=== PATIENT | female | born 1985 | race Caucasian/White ===

== ENCOUNTER 2020-04-15 17:42 | Emergency (ER) | payer MEDICAID, SELFPAY ==
[2020-04-15] VITALS (13 sets, daily range): BP systolic 144–158; BP diastolic 89–100; PULSE 88–97; RESP 12–19; TEMP 36.7–36.8; O2SAT 95–100
[2020-04-15 18:18] LABS: Basophils Percent Auto 0.3 % (0.2-1.2); Eosinophils Absolute Auto 0.1 K/mm3 (0-0.3); Eosinophils Percent Auto 1.6 % (0-4.4); Hematocrit 38.8 % (37.0-47.0); Hemoglobin 13.4 g/dL (12.0-15.0); Immature Granulocyte Absolute 0.01 K/mm3 (0.00-0.031); Immature Granulocyte Percent A 0.1 % (0-0.5); Lymphocytes Absolute Auto 1.69 K/mm3 (0.9-3.2); Lymphocytes Percent Auto 22.6 % (18.3-44.2); Mean Corpuscular HGB Conc 34.5 g/dl (32-36); Mean Corpuscular Hemoglobin 28.3 pg (26-34); Mean Platelet Volume 9.3 fl (7.4-10.4); Monocytes Absolute Auto 0.5 K/mm3 (0.1-0.6); Monocytes Percent Auto 6.8 % (2.6-8.5); Neutrophils Absolute Auto 5.1 K/mm3 (1.3-6.7); Neutrophils Percent Auto 68.6 % (45.5-73.1); Platelet Count Result 293 k/mm3 (150-375); Red Blood Count 4.73 M/mm3 (4.2-5.4); Red Cell Distribution Width 13.2 % (11.5-14.5); White Blood Count 7.5 K/mm3 (4.5-10.0)
[2020-04-15 18:30] LABS: Alanine Aminotransferase 22 U/L (4-35); Albumin Level 4.1 g/dL (3.5-5.1); Alkaline Phosphatase 115 U/L (38-126); Anion Gap 8 mmol/L (8-16); Aspartate Amino Transferase 23 U/L (14-36); Bilirubin,Total 0.5 mg/dL (0.2-1.3); Blood Urea Nitrogen 6 mg/dL (7-17); Calcium 9.1 mg/dL (8.4-10.2); Carbon Dioxide 27 mmol/L (22-30); Chloride 103 mmol/L (98-107); Estimated CRCL calculation 175 ml/min; Estimated Glomerular Filt Rate > 60; Glucose 111 mg/dL (65-105); Lipase 40 U/L (23-300); Potassium 3.5 mmol/L (3.4-5.0); Sodium 138 mmol/L (137-145)
--- NOTE | 2020-04-15 18:43 | ED.ABDPAIN ---
HPI - Abdominal Pain General Chief Complaint: Abdominal Pain Stated Complaint: abd pain and vomiting Time Seen by Provider: 04/15/20 18:05 Source: patient Mode of arrival: ambulatory Limitations: no limitations History of Present Illness HPI narrative: 35-year-old female Presents for evaluation of upper abdominal pain occurring for the last approximately 3 days Associated with nausea and vomiting but not relieved by vomiting She does not think that food seems to make it appreciably worse She had a cholecystectomy in [facility] about 4 months ago without having any problems until now No fever, not having diarrhea, no urinary symptoms She does not smoke or drink alcohol She has a history of hypertension and anxiety MD elicited complaint: abdominal pain Onset (ago): day(s) Associated symptoms: nausea and vomiting Related Data Home Medications Medication Instructions Recorded Confirmed lisinopril 5 mg PO DAILY 04/15/20 sertraline [Zoloft] 25 mg PO DAILY 04/15/20 Allergies Allergy/AdvReac Type Severity Reaction Status Date / Time No Known Allergies Allergy Verified 04/15/20 18:01 Review of Systems Review of Systems: All systems reviewed & are unremarkable except as noted in HPI and below Constitutional: Constitutional: Denies chills and Denies fever(s) Cardiovascular: Cardiovascular: Denies chest pain Respiratory: Respiratory: Denies cough and Denies dyspnea Gastrointestinal: Gastrointestinal: Reports as per HPI and Reports no additional gastrointestinal complaints Genitourinary: Genitourinary: Reports no additional female genitourinary complaints and Reports as per HPI Exam Const: General: no acute distress and alert Nutritional Appearance: obese Orientation/consciousness: patient oriented x3 HENMT: Head: normal to inspection Eyes: Conjunctivae: conjunctivae normal EOM: EOMs intact bilaterally Resp: Effort & Inspection: normal respiratory effort Auscultation: clear to auscultation bilaterally Cardio: Rate: regular rate Rhythm: regular rhythm GI: GI Palp: Yes Soft to palpation, Yes Tenderness to palpation present (GI) (Mild, epigastric), No Guarding due to palpation present (GI) and No Rebound tenderness present Other: Habitus somewhat limits exam : General: Yes no CVA tenderness Skin: General skin exam: normal color Lesions: lesion noted (looks like a hickey on l side of neck) Neuro: General: patient oriented x3 and moves all extremities Speech: normal speech Extrem: General: no edema Course Course Emergency Course: Symptoms relieved by GI cocktail Lab evaluation pretty innocuous UA likely contaminated Vital Signs Vital signs: Vital Signs Pulse Rate 90 04/15/20 17:54 Respiratory Rate 16 04/15/20 17:54 Blood Pressure 146/100 H 04/15/20 17:54 Pulse Oximetry 95 04/15/20 17:54 Temperature 36.8 C 04/15/20 17:58 Pulse Rate 96 04/15/20 18:46 Respiratory Rate 19 04/15/20 19:02 Blood Pressure 144/89 H 04/15/20 18:46 Pulse Oximetry 99 04/15/20 19:02 MDM - Abdominal Pain Lab Data Result diagrams: 04/15/20 18:12 04/15/20 18:12 Labs: Lab Results 04/15/20 04/15/20 04/15/20 Range/Units 18:12 18:12 20:44 WBC 7.5 (4.5-10.0) K/mm3 RBC 4.73 (4.2-5.4) M/mm3 Hgb 13.4 (12.0-15.0) g/dL Hct 38.8 (37.0-47.0) % MCV 82.0 (80-100) fl MCH 28.3 (26-34) pg MCHC 34.5 (32-36) g/dl RDW 13.2 (11.5-14.5) % Plt Count 293 (150-375) k/mm3 MPV 9.3 (7.4-10.4) fl Immature Gran % (Auto) 0.1 (0-0.5) % Neut % (Auto) 68.6 (45.5-73.1) % Lymph % (Auto) 22.6 (18.3-44.2) % Reynolds % (Auto) 6.8 (2.6-8.5) % Eos % (Auto) 1.6 (0-4.4) % Baso % (Auto) 0.3 (0.2-1.2) % Lymph # (Auto) 1.69 (0.9-3.2) K/mm3 Reynolds # (Auto) 0.5 (0.1-0.6) K/mm3 Eos # (Auto) 0.1 (0-0.3) K/mm3 Baso # (Auto) 0.0 (0.0-0.1) K/mm3 Abs Immat Gran (auto) 0.01 (0.
[2020-04-15] MEDS: ONDANSETRON INJ 4 MG/2 ML VIAL IV PUSH (19:04)
[2020-04-15] MEDS: BELLADONNA ALK/PHENOB ELIX 10 ML, MAG HYDROX/ALUMINUM HYD/SIMETH 30 ML, LIDOCAINE HCL 2... PO (19:04)
[2020-04-15 20:55] LABS: Add Urine Microscopic? YES; Appearance Urine Clear (Clear); Bacteria Urine Trace /hpf; Bilirubin Urine Negative (Negative); Blood Urine Negative (Negative); Color Urine Yellow (Yellow); Glucose Urine UA Negative (Negative); Ketones Urine 2+ mg/dL (Negative); Leukocyte Esterase Ur Negative LEU/UL (Negative); Mucus Urine Heavy /lpf; Nitrate Urine Negative (Negative); Protein Urine 1+ mg/dL (Negative); Specific Grav Ur 1.025 (1.001-1.035); Squamous Epithelial Cell Urine Many /hpf (Few); WBC Urine 0-3 /hpf
== END 2020-04-15 21:20 | disposition home or self-care (01) ==
PROVIDERS: Emergency Provider Emergency Medicine
DX: K29.70 Gastritis, unspecified, without bleeding (principal); I10 Essential (primary) hypertension; F41.9 Anxiety disorder, unspecified
CPT/HCPCS: 36415; 51701; 80053; 81001; 81025; 83690; 85025; 96374; 99284; A9270; J2405

== ENCOUNTER 2020-04-16 04:57 | Observation (INO) | payer MEDICAID, SELFPAY ==
[2020-04-16] VITALS (15 sets, daily range): BP systolic 108–188; BP diastolic 89–111; PULSE 83–128; RESP 12–28; TEMP 36.2–36.7; O2SAT 88–100; BMI 52.0
--- NOTE | ~2020-04-16 | CT_ITS ---
EXAMINATION: CT brain wo con EXAM DATE: 04/16/2020 05:31 INDICATION: Altered mental status. Temporary change in awareness. TECHNIQUE: Spiral CT of the head was performed without contrast. Axial, coronal and sagittal images were reviewed. The dose-length product (DLP) for this examination was 605.33 mGy-cm. The exposure w as tailored according to patient size, and iterative reconstruction (ASIR) was used as additional dos e reduction technique. There is no prior study for comparison. FINDINGS: There is no acute intraparenchymal hemorrhage. No evidence of intraparenchymal brain mass lesion. No evidence of acute infarction. There is no mass effect or midline shift. The ventricles are normal in size. There are no extra-axial collections. There are no acute calvarial fractures. T he orbits are unremarkable. Soft tissue is unremarkable. Opacified right nasal cavity and maxillary sinus. IMPRESSION: 1. No acute intracranial findings. 2. Right maxillary sinus, nasal cavity opacity. Reviewed, dictated and finalized at location A. 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
--- NOTE | ~2020-04-16 | XR_ITS ---
EXAMINATION: XR chest 1V portable EXAM DATE: 04/16/2020 06:22 INDICATION: Transient alteration of awareness. TECHNIQUE: Portable AP frontal chest x-ray was obtained. There is no prior study for comparison. FINDINGS: Small amount of right basilar opacity probably atelectasis. The lungs are otherwise clear. There are no pleural effusions. Cardiac silhouette is prominent but magnified on this AP technique. There is no pneumothorax suspected. The bones and soft tissues are unremarkable. IMPRESSION: Small amount of right basilar opacity probably atelectasis. Reviewed, dictated and finalized at location A. THESIOLOGY RESIDENT
--- NOTE | 2020-04-16 04:51 | ECG_ITS ---
Measurements Intervals Steele Rate: 117 P: 51 CO: 158 QRS: 46 QRSD: 93 T: 56 QT: 270 QTc: 377 Interpretive Statements SINUS TACHYCARDIA BASELINE WANDER- I, II ABNORMAL ECG Electronically Signed On 04-16-2020 13:20:23 PULLING MACHINE OPERATOR by Vinay Kee D.O.
--- NOTE | 2020-04-16 05:01 | ED.OVERDOSE ---
HPI - Overdose General Chief Complaint: Overdose Stated Complaint: AMS Source: patient and EMS Mode of arrival: EMS Limitations: altered mental status and clinical condition History of Present Illness HPI Narrative: Patient is a 35-year-old female who presented for evaluation of altered mental status. Per EMS crew, they received a call from family that the patient was unresponsive. When they arrived to the patient's residence, she was cyanotic, mottled appearing, unresponsive, nearly bradycardic. Patient glucose in the 300s. IV was unable to be placed, thus IO was placed and the patient was given 4 mg of intraosseous Narcan and the patient had to have [id number] ventilation to help with her respiratory suppression. Patient improved on administration of Narcan. She did not require chest compressions. Per EMS crew, when she did awaken, she told them she used heroin. An oral airway was placed for oxygenation and patient was transported to our facility. At the time of assessment, patient is thrashing in the bed, oriented to person, not to place or time. She states she does not know what happened. When asked if she tried to end her life she states no. History otherwise limited. Of note, patient seen and evaluated at this [id number], diagnosed with gastritis had an uneventful course and was discharged home home. Related Data Home Medications Medication Instructions Recorded Confirmed lisinopril 5 mg PO DAILY 04/15/20 sertraline [Zoloft] 25 mg PO DAILY 04/15/20 chlorhexidine gluconate 04/16/20 Allergies Allergy/AdvReac Type Severity Reaction Status Date / Time No Known Allergies Allergy Verified 04/15/20 18:01 Review of Systems Review of Systems: ROS unobtainable: Yes unobtainable due to mental status [facility] Past Medical History Medical History (Updated 04/16/20 @ 06:07 by Kait Edwards MD) Gastritis Social History Social History (Updated 04/16/20 @ 05:15 by Kait Edwards MD) Alcohol intake: current Substance use: current Substance use type: opiates Living arrangements: with family Gender identity (if verbalized by the patient): Female Exam Narrative: Exam Narrative: GENERAL: Altered, awake, alert HEAD: Normocephalic, atraumatic. EYES: PERRLA and EOMI. ENT: Nares clear, no rhinorrhea or epistaxis. Mucous membranes moist. NECK: Supple. CHEST: No respiratory distress, breathing even and non labored HEART: Tachycardic rate, sinus rhythm ABDOMEN: Obese, Non distended, non tender, ecchymoses to the left lower quadrant EXTREMITIES: Normal range of motion. No edema. IO present right lower extremity. SKIN: Warm, dry, no rash. NEURO:No focal deficits. Alert and oriented x1 Course Vital Signs Vital signs: Vital Signs Temperature 36.6 C 04/16/20 04:55 Pulse Rate 128 H 04/16/20 04:55 Respiratory Rate 22 H 04/16/20 04:55 Blood Pressure 108/98 H 04/16/20 04:55 Pulse Oximetry 88 L 04/16/20 04:55 Temperature 36.6 C 04/16/20 04:55 Pulse Rate 105 H 04/16/20 05:45 Respiratory Rate 20 04/16/20 05:45 Blood Pressure 126/89 04/16/20 05:45 Pulse Oximetry 99 04/16/20 05:45 MDM - Overdose MDM Narrative Medical decision making narrative: Patient is a 35-year-old who presented to our facility after being found on unconscious, unresponsive by family. At the time of assessment to our facility, patient is altered, able to state her name, does admit to drug use, denies suicidal ideation. Initially patient hypoxic and was placed on 2 L via nasal cannula. Patient responded well to 4 mg doses of Narcan, she did require repeat doses in the ER due to worsening mentation and somnolence. The IO that the EMS crew placed in the field was removed when we had IV access. Patient was given 2 L of IV fluids in the ER. No sign of aspiration on chest x-ray. Urinalysis from earlier visit to the ER for gastritis type symptoms not indicative of UTI. No alcohol on board, other tox
[2020-04-16 05:12] LABS: Alveolar/Arterial O2 Gradient 72.1 mmHg; Base Excess ABG -9.5 mEq/l (+/-2.0); Carboxyhemoglobin 0.3 % THb (0-2.0); Fractional Inspired Oxygen 28 %; HCO3 ABG 16.2 mEq/l (22.0-26.0); Methemoglobin ABG 0.4 %THb (0-1.5); Oxygen Saturation ABG 95.6 % (95.0-100.0); Oxyhemoglobin 94.5 % THb (90.0-100.0); PCO2 ABG 34.7 mmHg (35.0-45.0); PO2 ABG 86.6 mmHg (80.0-100.0); PO2 FiO2 Ratio Arterial Blood 3.09 %; Reduced Hemoglobin 4.8 %THb (0-5.0); Total Hemoglobin 13.5 g/dL (12.0-18.0)
[2020-04-16 05:15] LABS: Device ROOM AIR; Modified Allen's Test Pass; Site Drawn RIGHT RADIAL; pH ABG 7.286 (7.350-7.450)
[2020-04-16 05:17] LABS: Basophils Percent Auto 0.4 % (0.2-1.2); Eosinophils Absolute Auto 0.1 K/mm3 (0-0.3); Eosinophils Percent Auto 1.8 % (0-4.4); Hematocrit 41.9 % (37.0-47.0); Hemoglobin 13.9 g/dL (12.0-15.0); Immature Granulocyte Absolute 0.04 K/mm3 (0.00-0.031); Immature Granulocyte Percent A 0.6 % (0-0.5); Lymphocytes Absolute Auto 1.91 K/mm3 (0.9-3.2); Lymphocytes Percent Auto 26.4 % (18.3-44.2); Mean Corpuscular HGB Conc 33.2 g/dl (32-36); Mean Corpuscular Hemoglobin 28.5 pg (26-34); Mean Corpuscular Volume 85.9 fl (80-100); Monocytes Absolute Auto 0.2 K/mm3 (0.1-0.6); Monocytes Percent Auto 2.2 % (2.6-8.5); Neutrophils Percent Auto 68.6 % (45.5-73.1); Platelet Count Result 278 k/mm3 (150-375); Red Blood Count 4.88 M/mm3 (4.2-5.4); Red Cell Distribution Width 13.2 % (11.5-14.5); White Blood Count 7.2 K/mm3 (4.5-10.0)
[2020-04-16] MEDS: NALOXONE HCL INJ 2 MG/2 ML AMP 4 MG IV PUSH (05:17)
[2020-04-16 05:20] LABS: Glucose Point of Care 172 (65-105)
[2020-04-16 05:27] LABS: INR 1.2; Prothrombin Time 15.6 Seconds (11.1-14.7)
[2020-04-16 05:28] LABS: Partial Thromboplastin Time 24.7 SECONDS (22.3-36.8)
[2020-04-16 05:34] LABS: Alanine Aminotransferase 33 U/L (4-35); Albumin Level 4.1 g/dL (3.5-5.1); Alkaline Phosphatase 136 U/L (38-126); Anion Gap 17 mmol/L (8-16); Aspartate Amino Transferase 82 U/L (14-36); Bilirubin,Total 0.6 mg/dL (0.2-1.3); Blood Urea Nitrogen 6 mg/dL (7-17); CRP 0.9 mg/dL (<1.0); Calcium 8.4 mg/dL (8.4-10.2); Carbon Dioxide 22 mmol/L (22-30); Chloride 101 mmol/L (98-107); Estimated Glomerular Filt Rate > 60; Glucose 213 mg/dL (65-105); Potassium 3.3 mmol/L (3.4-5.0); Sodium 140 mmol/L (137-145)
[2020-04-16] MEDS: SODIUM CHLORIDE 0.9% IV 1,000 ML 999 ML IV CONT (05:36)
[2020-04-16 05:43] LABS: Troponin I < 0.012 ng/mL (0.000-0.034)
[2020-04-16 06:13] LABS: Barbiturate Screen Urine Negative (Negative); Benzodiazepines Screen Urine Negative (Negative)
[2020-04-16] MEDS: MAGNESIUM SULF 2 GM/WATER 50ML 2 GM/50 ML BAG IVPB (06:16)
[2020-04-16 06:21] LABS: Acetaminophen < 10 ug/mL (10-30); Ethanol < 10 mg/dL (<10); Salicylate 4.9 mg/dL (2-20)
[2020-04-16 06:26] LABS: Lactic Acid Reflex 3.6 mmol/L (0.7-2.1)
[2020-04-16 06:27] LABS: Beta-Hydroxybutyrate/Acetoacetate 0.13 mmol/L (0.02-0.27)
--- NOTE | 2020-04-16 06:38 | PC.NURSE ---
pt has multiple scabs and bruises on body.
[2020-04-16 07:05] LABS: Magnesium 2.2 mg/dL (1.6-2.3); Phosphorus 7.1 mg/dL (2.5-4.5)
[2020-04-16 07:25] LABS: Cannabinoid Screen Urine Positive (Negative); Cocaine Screen Urine Negative (Negative); Methadone Screen Urine Negative (Negative); Opiate Screen Urine Negative (Negative); Phencyclidine Screen Urine Negative (Negative)
[2020-04-16 07:26] LABS: Amphetamine Screen Urine Positive (Negative)
[2020-04-16] MEDS: ONDANSETRON INJ 4 MG/2 ML VIAL IV PUSH (07:47)
[2020-04-16] MEDS: LACTATED RINGERS 1,000 ML 999 ML IV CONT ×2 (07:51→11:58)
[2020-04-16 09:08] LABS: Reflex Lactic Acid Yes or No Add Lactic
--- NOTE | 2020-04-16 10:58 | PM.IMHP ---
H&P: HPI History of Present Illness Date/Time: 04/16/20 10:58 Chief Complaint: Multiple drug overdose Narrative: Patient is a 35-year-old female who presented for evaluation of altered mental status. Per EMS crew, they received a call from family that the patient was unresponsive. When they arrived to the patient's residence, she was cyanotic, mottled appearing, unresponsive, nearly bradycardic. Patient glucose in the 300s. IV was unable to be placed, thus IO was placed and the patient was given 4 mg of intraosseous Narcan and the patient had to have csi-vpofm-alle ventilation to help with her respiratory suppression. Patient improved on administration of Narcan. She did not require chest compressions. Per EMS crew, when she did awaken, she told them she used heroin. An oral airway was placed for oxygenation and patient was transported to our facility. At the time of assessment, patient is thrashing in the bed, oriented to person, not to place or time. She states she does not know what happened. When asked if she tried to end her life she states no. History otherwise limited. At present time patient in the ICU. Patient is still drowsy but arousable and moves all extremity. Patient denies any shortness of breath fever chills. Patient denies any abdominal pain nausea vomiting or diarrhea. Patient denies any fever. We will reassess the patient dated on and monitor patient continuously in the ICU for respiratory depression and other signs of withdrawal. Review of Systems Review of Systems: Narrative: All review of systems is negative except as that are noted in the history and physical examination ROS unobtainable: Yes unobtainable due to mental status PMF[facility] Past Medical History Medical History (Updated 04/16/20 @ 06:07 by Kait Edwards MD) Gastritis Social History Social History (Updated 04/16/20 @ 05:15 by Kait Edwards MD) Alcohol intake: current Substance use: current Substance use type: opiates Living arrangements: with family Gender identity (if verbalized by the patient): Female Meds Home Medications and Allergies Home Medications Medication Instructions Recorded Confirmed Type lisinopril 5 mg PO DAILY 04/15/20 History pantoprazole [Protonix] 40 mg PO HS 28 Days #28 tablet 04/15/20 Rx sertraline [Zoloft] 25 mg PO DAILY 04/15/20 History chlorhexidine gluconate 04/16/20 History Allergies Allergy/AdvReac Type Severity Reaction Status Date / Time No Known Allergies Allergy Verified 04/15/20 18:01 Vital Signs Vital Signs - 24 hr 04/16/20 04:55 04/16/20 05:45 04/16/20 07:00 Temperature 36.6 C Pulse Rate 128 H 105 H 113 H Respiratory Rate 22 H 20 12 Blood Pressure 108/98 H 126/89 140/100 H Pulse Oximetry 88 L 99 96 04/16/20 07:30 04/16/20 08:22 04/16/20 09:51 Temperature Pulse Rate 116 H 99 Respiratory Rate 14 12 Blood Pressure 155/91 H 161/95 H Pulse Oximetry 96 97 98 Exam Narrative: Exam Narrative: GENERAL: Altered, awake, alert HEAD: Normocephalic, atraumatic. EYES: PERRLA and EOMI. ENT: Nares clear, no rhinorrhea or epistaxis. Mucous membranes moist. NECK: Supple. CHEST: No respiratory distress, breathing even and non labored HEART: Tachycardic rate, sinus rhythm ABDOMEN: Obese, Non distended, non tender, ecchymoses to the left lower quadrant EXTREMITIES: Normal range of motion. No edema. IO present right lower extremity. SKIN: Warm, dry, no rash. NEURO:No focal deficits. Alert and oriented x1 Const: General: cooperative and no acute distress Orientation/consciousness: oriented to person, oriented to place, oriented to time and patient oriented x3 HENMT: Head: normal to inspection Ears: hearing grossly normal bilaterally and external ears normal General nose exam: Normal external nose present Face and sinus: normal facial exam Mouth: Yes Normal oral and palatal mucosa present Eyes: General: appearance normal, both eyes and all related
[2020-04-16 11:30] LABS: Lactic Acid Reflex 0.9 mmol/L (0.7-2.1)
--- NOTE | 2020-04-16 11:47 | ADMGEN ---
This patient, Denita Rangel, was admitted to Intensive Care Unit-7. Patient/family oriented to hospital policies and general routines including ID bracelet, bed and alarms, visiting hours, pain management, procedures, bathroom and other care routines, personal items, smoking policy, room service/diet, and visiting hours. Information on how to activate the Rapid Response Team has been discussed. Patient/Family are encouraged to report perceived risks to care and to ask questions if they do not understand what they are told or what they should do.
[2020-04-16] MEDS: LACTATED RINGERS 1,000 ML 100 ML IV CONT ×2 (11:58→19:54)
--- NOTE | 2020-04-16 12:01 | WPDCNINT ---
Assessment and Plan Assessment and plan (1) Poisoning by opiate or related narcotic: Status: Acute Assessment and Plan: Patient took unknown tablet and gas station and became unresponsive. Positive for amphetamine and cannabinoids patient does admit to taking opioids Mental status improved with Narcan IV push I will continue Narcan infusion at this and slowly wean it down Continue IV fluids (2) Encephalopathy: Code(s): G93.40 - Encephalopathy, unspecified Status: Acute Assessment and Plan: Secondary to opioid overdose. Patient now on Narcan infusion and alert oriented x3 Monitor Head CT was negative (3) Respiratory failure: Code(s): J96.90 - Respiratory failure, unspecified, unspecified whether with hypoxia or hypercapnia Status: Acute Assessment and Plan: Patiently she presented with respiratory failure secondary to opioid overdose but since then has improved with Narcan infusion End-tidal CO2 monitor placed in the ICU (4) Depression: Code(s): F32.9 - Major depressive disorder, single episode, unspecified Status: Acute Assessment and Plan: Continue Zoloft (5) HTN (hypertension): Code(s): I10 - Essential (primary) hypertension Status: Acute Assessment and Plan: Resume lisinopril (6) Lactic acidosis: Code(s): E87.2 - Acidosis Status: Acute Assessment and Plan: Likely from hypoxia, hypoperfusion and hypovolemia Improved and lactic acid level has normalized now continue IV fluids Continue IV fluid Does not appear to have any signs of infection as CT chest x-ray UA were negative and WBC count was normal Additional Plan DVT prophylaxis -SCDs Stress ulcer prophylaxis -resume PPI Nutrition -clear liquid diet Code Status - Full Code 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 When they arrived to the patient's residence, she was cyanotic, mottled appearing, unresponsive, nearly bradycardic. Patient glucose in the 300s. IV was unable to be placed, thus IO was placed and the patient was given 4 mg of intraosseous Narcan and the patient had to have [id number]-[id number] ventilation to help with her respiratory suppression. Patient improved on administration of Narcan. She did not require chest compressions. Per EMS crew, when she did awaken, she told them she used heroin. An oral airway was placed for oxygenation and patient was transported to our facility. In the ED patient was given additional Narcan for IV access was obtained which led to improvement in mental status. She was started on IV Narcan infusion, lab work was done, 1 L IV fluid bolus was given and patient was admitted to ICU for further evaluation management This morning when I saw the patient she was alert oriented x3. She told me she took a capsule of drugs from a friend on a gas station and is not sure what was in it. She usually snorts meth and takes prescription pills which she obtains on the street including Percocet for her addiction. She states that she continues to have abdominal pain which is constant and has been going on for years. She did had a gallbladder removed in November of this year but states the pain never went away. She told me that she took the pill to treat her pain and was not planning to attempt suicide. She denies any suicidal homicidal ideation at this time although she does admit of having them in the past. She is on Zoloft for depression and lisinopril for blood pressure but patient was not very forthcoming with compliance. Social history apart from drug abuse mentioned above he denies any smoking or alcohol use Past medical history hypertension and depression Past surgical history cholecystectomy Review of Systems R
[2020-04-16] MEDS: POTASSIUM CHLORIDE 20 MEQ TABLET 40 MEQ PO (12:53)
[2020-04-16] MEDS: lisinopriL 10 MG TABLET PO ×2 (12:54→19:55)
[2020-04-16 14:01] LABS: Glucose Point of Care 97 (65-105)
[2020-04-16] MEDS: HEPARIN SODIUM 5,000 UNITS/ML VIAL 5000 UNITS SUB-Q (19:54)
[2020-04-17] VITALS (10 sets, daily range): BP systolic 130–180; BP diastolic 71–131; PULSE 83–102; RESP 12–24; TEMP 36.3–36.9; O2SAT 96–100
[2020-04-17 05:31] LABS: Anion Gap 9 mmol/L (8-16); Blood Urea Nitrogen 5 mg/dL (7-17); Calcium 8.3 mg/dL (8.4-10.2); Carbon Dioxide 25 mmol/L (22-30); Chloride 104 mmol/L (98-107); Estimated CRCL calculation 211 ml/min; Estimated Glomerular Filt Rate > 60; Glucose 85 mg/dL (65-105); Potassium 3.2 mmol/L (3.4-5.0); Sodium 138 mmol/L (137-145)
[2020-04-17] MEDS: ACETAMINOPHEN 325 MG TABLET 650 MG PO (08:40)
--- NOTE | 2020-04-17 09:32 | PM.IMPN ---
Progress Note: A&P Assessment and Plan (1) Poisoning by opiate or related narcotic: Status: Acute Assessment and Plan: 1. Multiple drug overdoses 2. Respiratory depression 3. History of hypertension 4. History of depression 5. History of gastroesophageal reflux disease 6. Hypokalemia Plan is to monitor signs of withdrawal. Give IV fluids. Replace potassium and monitor continue blood pressure and reflux medications. Restart depression mindset medicine. Provided counseling and referred to outpatient drug rehab upon discharge. Patient will stay for more than 2 days in the hospital. Patient is full code. Smoking Counselling will be provided. Patient is given therapeutic subcutaneous heparin for DVT prophylaxis. Additional Plan Patient is doing much better blood pressure is slightly high will increase blood pressure medicine. Potassium will replace. Will transfer to regular floor. Possible discharge in the morning. Subjective Date/time seen: 04/17/20 09:32 Interval history: Patient was seen during the morning rounds today. Patient is feeling much better. No shortness of breath or chest pain. Mood stable. Review of Systems Review of Systems: Narrative: All review of systems are negative except as mentioned in the history and physical examination. Exam Narrative: Exam Narrative: GENERAL: Altered, awake, alert HEAD: Normocephalic, atraumatic. EYES: PERRLA and EOMI. ENT: Nares clear, no rhinorrhea or epistaxis. Mucous membranes moist. NECK: Supple. CHEST: No respiratory distress, breathing even and non labored HEART: Tachycardic rate, sinus rhythm ABDOMEN: Obese, Non distended, non tender, ecchymoses to the left lower quadrant EXTREMITIES: Normal range of motion. No edema. IO present right lower extremity. SKIN: Warm, dry, no rash. NEURO:No focal deficits. Alert and oriented x1 Const: General: cooperative and no acute distress Orientation/consciousness: oriented to person, oriented to place, oriented to time and patient oriented x3 HENMT: Head: normal to inspection Ears: hearing grossly normal bilaterally and external ears normal General nose exam: Normal external nose present Face and sinus: normal facial exam Mouth: Yes Normal oral and palatal mucosa present Eyes: General: appearance normal, both eyes and all related structures Neck: Neck: normal visual inspection and full ROM Chest: Chest palpation & inspection: normal inspection of the chest and normal palpation of entire chest wall Resp: Effort & Inspection: normal respiratory effort Auscultation: clear to auscultation bilaterally Cardio: Jugular venous distension: no JVD Palpation: normal PMI Rate: regular rate Heart sounds: S1 normal heart sound present and S2 normal heart sound present GI: Inspection: normal to inspection Neuro: General: oriented to person, oriented to place, oriented to time and patient oriented x3 Cranial nerves: Yes CN's II-XII intact bilaterally Speech: normal speech Gait exam (Neuro): Normal gait present Motor exam (neuro): 5/5 motor strength present throughout Sensory Exam: normal sensation Psych: Appearance: grossly normal Objective Data Vital Signs Vital Signs: Vital Signs - 24 hr 04/16/20 09:51 04/16/20 10:00 04/16/20 12:00 Temperature 36.2 C L Pulse Rate 123 H 94 Respiratory Rate 21 H 25 H Blood Pressure 171/111 H 168/109 H Pulse Oximetry 98 100 99 04/16/20 14:00 04/16/20 16:00 04/16/20 18:00 Temperature 36.2 C L Pulse Rate 102 H 106 H 106 H Respiratory Rate 28 H 26 H 18 Blood Pressure 163/98 H 159/99 H 160/100 H Pulse Oximetry 99 94 99 04/16/20 20:00 04/16/20 22:00 04/17/20 00:00 Temperature 36.7 C 36.8 C Pulse Rate 89 93 94 Respiratory Rate 24 H 18 24 H Blood Pressure 180/99 H 153/90 H 180/99 H Pulse Oximetry 98 99 98 04/17/20 02:00 04/17/20 04:00 04/17/20 06:00 Temperature 36.8 C Pulse Rate 90 83 96 Respiratory Rate 22 H 24 H 18 Blood Pressure 139/99 H 130/89 155/81
[2020-04-17] MEDS: ONDANSETRON INJ 4 MG/2 ML VIAL IV PUSH (10:03)
[2020-04-17] MEDS: HEPARIN SODIUM 5,000 UNITS/ML VIAL 5000 UNITS SUB-Q ×2 (10:53→20:41)
[2020-04-17] MEDS: PANTOPRAZOLE 40 MG TABLET PO ×2 (10:54→11:59)
[2020-04-17] MEDS: lisinopriL 20 MG TABLET PO ×2 (11:58→20:41)
--- NOTE | 2020-04-17 12:57 | WPDINTPN ---
Progress Note: A&P Assessment and Plan (1) Poisoning by opiate or related narcotic: Status: Acute Assessment and Plan: Patient took unknown tablet and gas station and became unresponsive. Positive for amphetamine and cannabinoids patient does admit to taking opioids Mental status improved with Narcan IV push Narcan infusion has been discontinued, patient is awake, alert, oriented x3 Continue IV fluids (2) Encephalopathy: Code(s): G93.40 - Encephalopathy, unspecified Status: Acute Assessment and Plan: RESOLVED Secondary to opioid overdose. Patient now on Narcan infusion and alert oriented x3 Monitor Head CT was negative (3) Respiratory failure: Code(s): J96.90 - Respiratory failure, unspecified, unspecified whether with hypoxia or hypercapnia Status: Acute Assessment and Plan: Patiently she presented with respiratory failure secondary to opioid overdose but since then has improved with Narcan infusion End-tidal CO2 monitor placed in the ICU -currently on room air with good O2 sats (4) Depression: Code(s): F32.9 - Major depressive disorder, single episode, unspecified Status: Acute Assessment and Plan: Continue Zoloft (5) HTN (hypertension): Code(s): I10 - Essential (primary) hypertension Status: Acute Assessment and Plan: Resume lisinopril (6) Lactic acidosis: Code(s): E87.2 - Acidosis Status: Acute Assessment and Plan: Likely from hypoxia, hypoperfusion and hypovolemia Improved and lactic acid level has normalized now continue IV fluids Continue IV fluid Does not appear to have any signs of infection as CT chest x-ray UA were negative and WBC count was normal Additional Plan DVT prophylaxis -SCDs Stress ulcer prophylaxis -resume PPI Nutrition -advanced diet as tolerated Code Status - Full Code Subjective Date/time seen: 04/17/20 12:57 Interval history: Reason for consult: Unknown drug overdose/use, altered mental status 04/17: Patient is awake, alert, oriented x3. She really does not know what was given to her at the gas station. States she is glad to be alive. Her urine tox screen was positive for amphetamine and cannabinoids and she does admit to taking opioids. Patient is hemodynamically stable. Patient did have an episode of emesis this morning and was given Zofran. Patient denies any chest pain, abdominal pain, nausea at this time Review of Systems Review of Systems: All systems reviewed & are unremarkable except as noted in HPI and below Exam Narrative: Exam Narrative: General: Pt is alert awake and in NAD Lungs/Chest: Trachea central Clear BS B/L, No crackles or wheezing. Cardiac: RRR. Normal S1 S2. No murmurs Circulation: Pedal pulses are intact and symmetrical. Abdomen: Obese Normal bowel sounds. Soft. ND. Mild diffuse tenderness throughout abdomen which is inconsistent when I examine her again, her facial expressions appeared out of proportion Extremities: No clubbing, cyanosis or edema. Warm no signs of IV drug use in antecubital area : Sorto in place Neurologic: Follows commands. Moves all 4 extremities PERRL Skin: Multiple areas of scab wounds from skin picking although her body Objective Data Vital Signs Vital Signs: Vital Signs - 24 hr 04/16/20 14:00 04/16/20 16:00 04/16/20 18:00 Temperature 97.1 F L Pulse Rate 102 H 106 H 106 H Respiratory Rate 28 H 26 H 18 Blood Pressure 163/98 H 159/99 H 160/100 H Pulse Oximetry 99 94 99 04/16/20 20:00 04/16/20 22:00 04/17/20 00:00 Temperature 98.0 F 98.3 F Pulse Rate 89 93 94 Respiratory Rate 24 H 18 24 H Blood Pressure 180/99 H 153/90 H 180/99 H Pulse Oximetry 98 99 98 04/17/20 02:00 04/17/20 04:00 04/17/20 06:00 Temperature 98.3 F Pulse Rate 90 83 96 Respiratory Rate 22 H 24 H 18 Blood Pressure 139/99 H 130/89 155/81 H Pulse Oximetry 98 98 98 04/17/20 08:00 04/17/20 10:00 04/17/20 10:50 Temperature 9
[2020-04-17 15:26] LABS: Glucose Point of Care 86 (65-105)
--- NOTE | 2020-04-17 16:08 | PC.NURSE ---
PATIENT TRANSFERED TO [facility] PER WHEELCHAIR. REPORT GIVEN TO SUGAR CUMMINS. ALL QUESTIONS ANSWERED. BELONGINGS SENT.
[2020-04-17] MEDS: SERTRALINE HCL 25 MG TABLET PO (16:54)
[2020-04-17 17:05] LABS: Glucose Point of Care 91 (65-105)
[2020-04-17 22:44] LABS: Glucose Point of Care 91 (65-105)
[2020-04-18 05:17] VITALS: BP 153/89; PULSE 95; RESP 16; TEMP 36.6; O2SAT 98
[2020-04-18 06:20] LABS: Anion Gap 10 mmol/L (8-16); Blood Urea Nitrogen 7 mg/dL (7-17); Calcium 8.5 mg/dL (8.4-10.2); Carbon Dioxide 26 mmol/L (22-30); Chloride 103 mmol/L (98-107); Estimated CRCL calculation 188 ml/min; Estimated Glomerular Filt Rate > 60; Glucose 88 mg/dL (65-105); Potassium 3.5 mmol/L (3.4-5.0); Sodium 139 mmol/L (137-145)
[2020-04-18 08:00] VITALS: BP 155/99; PULSE 103; RESP 18; TEMP 36.2; O2SAT 97
--- NOTE | 2020-04-18 09:30 | PM.DS ---
DS: Admitting Diagnosis Admitting Diagnosis Admitting Diagnosis: 1 Multiple drug overdose 2. History of Depression 3. History of gastroesophageal reflux disease 4. History of hypertension DS: Discharge Diagnosis Discharge Diagnosis (1) Poisoning by opiate or related narcotic: Status: Acute Assessment and Plan: 1. Multiple drug overdoses 2. Respiratory depression 3. History of hypertension 4. History of depression 5. History of gastroesophageal reflux disease 6. Hypokalemia Plan is to monitor signs of withdrawal. Give IV fluids. Replace potassium and monitor continue blood pressure and reflux medications. Restart depression mindset medicine. Provided counseling and referred to outpatient drug rehab upon discharge. Patient will stay for more than 2 days in the hospital. Patient is full code. Smoking Counselling will be provided. Patient is given therapeutic subcutaneous heparin for DVT prophylaxis. DS: Summary Hospital Course Hospital Course: Chief Complaint: Multiple drug overdose Narrative: Patient is a 35-year-old female who presented for evaluation of altered mental status. Per EMS crew, they received a call from family that the patient was unresponsive. When they arrived to the patient's residence, she was cyanotic, mottled appearing, unresponsive, nearly bradycardic. Patient glucose in the 300s. IV was unable to be placed, thus IO was placed and the patient was given 4 mg of intraosseous Narcan and the patient had to have [id number] ventilation to help with her respiratory suppression. Patient improved on administration of Narcan. She did not require chest compressions. Per EMS crew, when she did awaken, she told them she used heroin. An oral airway was placed for oxygenation and patient was transported to our facility. At the time of assessment, patient is thrashing in the bed, oriented to person, not to place or time. She states she does not know what happened. When asked if she tried to end her life she states no. History otherwise limited. At present time patient in the ICU. Patient is still drowsy but arousable and moves all extremity. Patient denies any shortness of breath fever chills. Patient denies any abdominal pain nausea vomiting or diarrhea. Patient denies any fever. We will reassess the patient dated on and monitor patient continuously in the ICU for respiratory depression and other signs of withdrawal. Patient was admitted in the intensive care unit IV fluid was given, patient blood pressure was controlled. Patient little symptoms are monitored. Patient was referred to outpatient rehab. Patient was given clonidine to decrease the patrol and control of blood pressure. Today patient is feeling better her mood is controlled no suicidal homicidal ideation. Patient discharged home stable condition low-sodium diet activity as tolerated follow-up primary care physician outpatient next week patient also referred to outpatient drug rehab. Time spent discussing smoking cessation with patient: 3 to 10 minutes Status at Discharge Cognitive/behavioral status at discharge: Stable Functional status at discharge: independent ambulation Overall status at discharge: patient is back to baseline Time Spent with Patient Time attestation: Total time spent providing and/or coordinating discharge services: Time spent: Less than 30 minutes Specific discharge activities: As tolerated Exam Narrative: Exam Narrative: GENERAL: Altered, awake, alert HEAD: Normocephalic, atraumatic. EYES: PERRLA and EOMI. ENT: Nares clear, no rhinorrhea or epistaxis. Mucous membranes moist. NECK: Supple. CHEST: No respiratory distress, breathing even and non labored HEART: Tachycardic rate, sinus rhythm ABDOMEN: Obese, Non distended, non tender, ecchymoses to the left lower quadrant EXTREMITIES: Normal range of motion. No edema. IO present right lower extremity. SKIN: Warm, dry, no rash. NEURO:No focal deficits. Alert and oriented x
[2020-04-18] MEDS: SERTRALINE HCL 25 MG TABLET PO (09:56)
[2020-04-18] MEDS: cloNIDine HCL 0.1 MG TABLET PO (09:56)
[2020-04-18] MEDS: lisinopriL 20 MG TABLET PO (09:56)
== END 2020-04-18 10:19 | disposition home or self-care (01) ==
LOC: ANHED 06:07 → ANHICU 13:29 → ANH3MED 04-18 09:29 → ANHICU 04-21 15:25
PROVIDERS: Internal Medicine; Admitting Provider Family Medicine; Emergency Provider Emergency Medicine; Visit Provider Internal Medicine
DX: T40.601A Poisoning by unspecified narcotics, accidental (unintentional), initial encounter (principal); G93.40 Encephalopathy, unspecified; J96.90 Respiratory failure, unspecified, unspecified whether with hypoxia or hypercapnia; E87.2 Acidosis; I10 Essential (primary) hypertension; K21.9 Gastro-esophageal reflux disease without esophagitis; E87.6 Hypokalemia; F32.9 Major depressive disorder, single episode, unspecified; K29.70 Gastritis, unspecified, without bleeding
CPT/HCPCS: 36415; 36600; 51701; 70450; 71045; 80048; 80053; 80307; 81025; 82010; 82375; 82805; 82948; 83050; 83605; 83735; 84100; 84443; 84484; 85025; 85610; 85730; 86140; 93005; 96361; 96365; 96366; 96372; 96374; 96375; 99285; A9270; G0378; J0131; J1644; J2310; J2405; J3475; J7030; J7050; J7120

== ENCOUNTER 2022-12-28 15:10 | Emergency (ER) | payer MEDICAID, SELFPAY ==
[2022-12-28 16:09] VITALS: PULSE 82; RESP 16; TEMP 36.8; O2SAT 97
--- NOTE | 2022-12-28 19:02 | ED.SKABFB ---
HPI - Skin/Abscess/Foreign Bdy General Chief complaint: Skin/Abscess/Foreign Body Stated complaint: boils Time Seen by Provider: 12/28/22 17:13 Source: patient Mode of arrival: ambulatory Limitations: no limitations History of Present Illness HPI narrative: This is a 37 year old female that presents to the ER for abscesses present on her scalp. Reports swelling and pain to the areas. Reports mild oozing. Denies fevers. Related Data Allergies Allergy/AdvReac Type Severity Reaction Status Date / Time No Known Allergies Allergy Verified 04/15/20 18:01 Review of Systems Review of Systems: CONSTITUTIONAL: Denies fever SKIN: Reports redness and swelling All systems reviewed & are unremarkable except as noted in HPI and below PMFSH Past Medical History Medical History (Updated 12/28/22 @ 19:03 by Radha Donovan PA-C) Depression Gastritis HTN (hypertension) Social History Social History Smoking status: Unknown if ever smoked Alcohol intake: current Substance use: current Substance use type: opiates Living arrangements: with family Gender identity (if verbalized by the patient): Female Spiritual care concerns: No Exam Narrative: GENERAL: Well-appearing, well-nourished, and in no acute distress. HEAD: Normocephalic, atraumatic. Two small abscesses present on the scalp, spontaneously draining. EYES: EOMI. CHEST: No respiratory distress. HEART: Regular rate EXTREMITIES: Normal range of motion. No edema. SKIN: Warm, dry, no rash. NEURO: No focal deficits. Alert and oriented x3. PSYCH: Normal mood and affect Course Course Emergency Course: Patient educated on further wound care Vital Signs Vital signs: Vital Signs Temperature 98.3 F 12/28/22 16:09 Pulse Rate 82 12/28/22 16:09 Respiratory Rate 16 12/28/22 16:09 Pulse Oximetry 97 12/28/22 16:09 Oxygen Delivery Room Air 12/28/22 16:09 Temperature 98.3 F 12/28/22 16:09 Pulse Rate 77 12/28/22 19:03 Respiratory Rate 16 12/28/22 19:03 Blood Pressure 130/98 H 12/28/22 19:03 Pulse Oximetry 100 12/28/22 19:03 Oxygen Delivery Room Air 12/28/22 16:09 Procedures Abscess I/D scalp: Date of Incision: 12/28/22 Packing used?: none I&D Results: Pus Abcess I&D Additional Comments: Two abscesses on scalp were spontaneously draining. Expressed additional purulence from them. Covered with antibiotic ointment MDM - Skin/Abscess/Foreign Bdy MDM Narrative Medical decision making narrative: Patient presents to the ER for abscesses present on the scalp. She is afebrile and nontoxic appearing. Her vitals are stable. Abscesses were spontaneously draining. I did express purulence from both of them and sent for culture. She will be started on oral antibiotics. Instructed on further wound care. Was instructed to follow up with Plastic surgery. She was given warnings to return to the ER Differential Diagnosis Differential diagnosis: Likely abscess of skin or subcutaneous tissue, cellulitis, eczema, impetigo and contact dermatitis Critical Care Time Critical Care Time Critical Care Time: No Discharge Plan Discharge Clinical Impression: Abscess Patient Disposition: Home, Self-Care Condition: Stable Instructions: Antibiotic Form, Abscess (ED) Additional Instructions: Return if symptoms worsen or concerns: any increase in redness, swelling, pain or fever over 101 Take antibiotics as directed. Clean wound with mild soapy water. Apply antibiotic ointment daily. Warm compresses 3 times a day for 30 minutes each Follow up with plastic surgery Prescriptions: New doxycycline hyclate 100 mg tablet 100 mg PO BID 14 Days Qty: 28 0RF No Action clonidine HCl 0.1 mg Tablet 0.1 mg PO Q12HR 30 Days Qty: 60 0RF lisinopril 20 mg Tablet 20 mg PO Q12HR 30 Days Qty: 60 0RF sertraline [Zoloft] 25 mg Tablet 2
[2022-12-28 19:03] VITALS: BP 130/98; PULSE 77; RESP 16; O2SAT 100
[2022-12-28] MEDS: KETOROLAC 30 MG/ML VIAL (*BKC) IM (19:15)
== END 2022-12-28 19:19 | disposition home or self-care (01) ==
PROVIDERS: Emergency Provider Physician Assistant
DX: L02.811 Cutaneous abscess of head [any part, except face] (principal); I10 Essential (primary) hypertension; F32.A Depression, unspecified
CPT/HCPCS: 87070; 87147; 87186; 87205; 96372; 99283; J1885

== ENCOUNTER 2022-12-31 12:17 | Emergency (ER) | payer MEDICAID, SELFPAY ==
[2022-12-31 12:24] VITALS: BP 115/69; PULSE 67; RESP 18; TEMP 36.6; O2SAT 97
[2022-12-31 13:55] VITALS: BP 110/73; PULSE 65; RESP 19; O2SAT 100
--- NOTE | 2022-12-31 14:04 | ED.SKABFB ---
HPI - Skin/Abscess/Foreign Bdy General Chief complaint: Skin/Abscess/Foreign Body Stated complaint: abnormal lab Time Seen by Provider: 12/31/22 13:05 Source: patient Mode of arrival: ambulatory Limitations: no limitations History of Present Illness HPI narrative: This is a 37 year old female who presents for evaluation of left ear abscess. She was evaluated in ER 3 days ago and prescribed antibiotics. She states she has not started her antibiotics yet because it was too expensive. She was called today due to abnormal lab test. She is not sure what lab test and she was told to come to ER. She denies any new complaints. She denies fever, chills, nausea, vomiting. On review of chart, it appears wound culture was positive for MRSA so this is likely why she was called. It is sensitive to bactrim Related Data Allergies Allergy/AdvReac Type Severity Reaction Status Date / Time No Known Allergies Allergy Verified 04/15/20 18:01 Review of Systems Review of Systems: All systems reviewed & are unremarkable except as noted in HPI and below PMFSH Past Medical History Medical History Depression Gastritis HTN (hypertension) Social History Social History Smoking status: Unknown if ever smoked Alcohol intake: current Substance use: current Substance use type: opiates Living arrangements: with family Gender identity (if verbalized by the patient): Female Spiritual care concerns: No Exam Const: General: no acute distress and alert Orientation/consciousness: patient oriented x3 Limitations: no limitations HENMT: Head: normal to inspection Face and sinus: normal facial exam Mouth: Yes Normal oral and palatal mucosa present, Yes lip normal and Yes moist mucous membranes Skin: Wounds: wounds noted (left scalp along posterior left ear with purulent drainage) Neuro: General: patient oriented x3, moves all extremities and CN's II-XI intact bilaterally Course Vital Signs Vital signs: Vital Signs Temperature 97.9 F 12/31/22 12:24 Pulse Rate 67 12/31/22 12:24 Respiratory Rate 18 12/31/22 12:24 Blood Pressure 115/69 12/31/22 12:24 Pulse Oximetry 97 12/31/22 12:24 Oxygen Delivery Room Air 12/31/22 12:24 Temperature 97.9 F 12/31/22 12:24 Pulse Rate 65 12/31/22 13:55 Respiratory Rate 19 12/31/22 13:55 Blood Pressure 110/73 12/31/22 13:55 Pulse Oximetry 100 12/31/22 13:55 Oxygen Delivery Room Air 12/31/22 12:24 MDM - Skin/Abscess/Foreign Bdy MDM Narrative Medical decision making narrative: I reviewed wound culture that resulted in MRSA. PAtient reports she was unable to afford doxycycline. She reports she has [place] medicaid so requested prescription to be sent to [facility]. I prescribed bactrim to [facility] in [facility] [address]. PAtient denies any additional questions or concerns. Discharge Plan Discharge Clinical Impression: Abscess of skin or subcutaneous tissue Patient Disposition: Home, Self-Care Condition: Stable Instructions: Antibiotic Form, Abscess (ED) Additional Instructions: Provide wound care as discussed. Please take antibiotics as prescribed Prescriptions: New sulfamethoxazole-trimethoprim [Bactrim DS] 800-160 mg tablet 2 tablet PO Q12H 7 Days Qty: 28 0RF No Action clonidine HCl 0.1 mg Tablet 0.1 mg PO Q12HR 30 Days Qty: 60 0RF lisinopril 20 mg Tablet 20 mg PO Q12HR 30 Days Qty: 60 0RF sertraline [Zoloft] 25 mg Tablet 25 mg PO DAILY 30 Days Qty: 30 0RF pantoprazole [Protonix] 40 mg tablet,delayed release (DR/EC) 40 mg PO HS 28 Days Qty: 28 0RF doxycycline hyclate 100 mg tablet 100 mg PO BID 14 Days Qty: 28 0RF Follow-up/Referrals: PHYSICIAN NOT ON STAFF,NONSTAFF [Primary Care Provider] -
== END 2022-12-31 14:25 | disposition home or self-care (01) ==
PROVIDERS: Emergency Provider General Practice
DX: H60.02 Abscess of left external ear (principal); I10 Essential (primary) hypertension
CPT/HCPCS: 99283